=== PATIENT | male | born 1980 | race Caucasian/White ===

== ENCOUNTER 2022-09-25 22:12 | Emergency (ER) | payer SELFPAY ==
[2022-09-25 22:18] VITALS: BP 125/101; PULSE 93; RESP 18; TEMP 36.6; O2SAT 99; BMI 26.4
--- NOTE | 2022-09-25 22:20 | ED_ITS ---
HPI - Eye Problem General: Chief complaint: Eye Problems Stated complaint: pice of rock in left eye Time Seen by Provider: 09/25/22 22:19 History of Present Illness: 42-year-old male patient comes in today for possible foreign body in the left eye. 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 Patient reports it feels like it is in the medial corner of the eye. Review of Systems General: Reports: 10 or more systems reviewed and unremarkable except in HPI and below Eyes: Reports: other (Possible foreign body) Physical Exam Const: COMMON NORMALS: alert HENMT: COMMON NORMALS: normocephalic HEAD & SCALP: normocephalic Eye: COMMON NORMALS: Equal, round and reactive pupils present and conjunctivae normal GENERAL EYE: appearance normal, both eyes and all related structures EYELID: eyelids normal CONJUNCTIVA: Yes conjunctivae normal CORNEA: Yes fluorescein used (Fluorescein uptake is noted, no significant ulceration or scratches noted.) PUPIL: Yes Equal, round and reactive pupils present EOM: No EOM abnormal OTHER: No obvious foreign body was noted. Patient had pain relief with tetracaine. Neck/C-Spine: COMMON NORMALS: full ROM Resp: COMMON NORMALS: normal respiratory effort and clear to auscultation bilaterally AUSCULTATION: clear to auscultation bilaterally Cardio: COMMON NORMALS: regular rate and regular rhythm RATE: regular rate RHYTHM: regular rhythm Extremity: COMMON NORMALS: normal to inspection Neuro: SENSORIUM/ORIENTATION: Yes alert Skin: COMMON NORMALS: turgor normal GENERAL SKIN EXAM: turgor normal Course Vital Signs: Vital signs: Vital Signs Temperature 97.8 F 09/25/22 22:18 Pulse Rate 93 09/25/22 22:18 Respiratory Rate 18 09/25/22 22:18 Blood Pressure 125/101 09/25/22 22:18 Pulse Oximetry 99 09/25/22 22:18 MDM - Eye Problem Medical Decision Making Patient comes in for possible foreign body to the left eye. On exam no obvious foreign body was noted. Under fluorescein stain small area of fluorescein uptake was noted but no ulceration or scratch was seen. Visual acuity was normal. Differential diagnosis includes foreign body, corneal abrasion, conjunctivitis. Reviewed exam with patient with recommendations for treatment with antibiotic TobraDex solution for the next 7 days. Recommend follow-up with eye healthcare facility administrator for further evaluation and treatment within the next 2 to 3 days. Discussed the need for follow-up if continued discomfort after 2 days. Patient reported understanding and agreed to plan. Discharge Plan Discharge Patient Disposition: Home Clinical Impression: Corneal abrasion Qualifiers: Encounter type: initial encounter Laterality: left Qualified Code(s): S05.02XA - Injury of conjunctiva and corneal abrasion without foreign body, left eye, initial encounter Condition: Stable Discharge Orders: Discharge ED (Routine); Ordered 09/25/22 Ordered By: Omega Moffett Referrals: Bisi Uribe APN [Primary Care Provider] - Discharge Diet: Usual diet Discharge Activity: Increase activity as tolerated Patient Instructions: Corneal Abrasion (ED) Activity Restrictions/Additional Instructions: Use antibiotic eyedrops 1 drop to the affected eye 4 times a day for the next 7 days. Use tetracaine, pain eyedrops, 1 drop every 2-3 hours as needed for pain to the eye. Do not use the pain eyedrops for longer than 48 hours. Have the eye rechecked in 3 days for evaluation to ensure proper healing. Follow-up with primary care or eye healthcare facility administrator. Return to ED for new concerns. Coding Level of Care Code ED Pulp Roller for Charla Doran
[2022-09-25] MEDS: eye irrigation 30 mL Btl EYE-LEFT (22:28)
[2022-09-25] MEDS: fluorescein 1 mg Strip EYE-LEFT (22:29)
[2022-09-25] MEDS: tetracaine 0.5% Op Soln 4 mL Btl 1 DROP EYE-LEFT (22:29)
[2022-09-25] MEDS: tobramycin-dexametha Op Susp 5 mL Btl 2 DROP EYE-LEFT (22:44)
== END 2022-09-25 22:47 | disposition home or self-care (01) ==
PROVIDERS: Emergency Provider Nurse Practitioner Family; PCP Nurse Practitioner Family
DX: S05.02XA Injury of conjunctiva and corneal abrasion without foreign body, left eye, initial encounter (principal); X58.XXXA Exposure to other specified factors, initial encounter
CPT/HCPCS: 99283